=== PATIENT | male | born 1955 | race Caucasian/White ===

== ENCOUNTER → 2023-10-30 | Emergency (ER) | payer MEDICARE, OTHER ==
[~2023-10-30] VITALS: Ht 167.6 cm; Wt 56.8 kg
[~2023-10-30] MED LIST: AMLO-257 PO; LISI-893 PO
[2023-10-30 16:18] LABS: BASOPHILS % (AUTO) 0.3 % (0.0-2.0); EOSINOPHILS % (AUTO) 0.4 % (1.0-6.0); HEMATOCRIT 36.2 % (41-53); HEMOGLOBIN 11.8 g/dL (13.5-17.5); LYMPHOCYTES # (AUTO) 0.8 K/uL (1.0-4.8); LYMPHOCYTES % (AUTO) 8.5 % (22.0-44.0); MEAN CORPUSCULAR HEMOGLOBIN 30.2 pg (26.0-34.0); MEAN CORPUSCULAR HGB CONC 32.7 G/dL (31.0-37.0); MEAN CORPUSCULAR VOLUME 92 fL (80-100); MONOCYTES % (AUTO) 10.8 % (2.0-9.0); NEUTROPHILS # (AUTO) 7.4 K/uL (1.8-7.7); PLATELET COUNT (AUTO) 158 K/uL (150-450); RED BLOOD CELL COUNT(AUTO) 3.92 MIL/uL (4.50-5.90); RED CELL DISTRIBUTION WIDTH 16.3 % (11.5-14.5); WHITE BLOOD COUNT (AUTO) 9.3 K/uL (4.5-11.0)
[2023-10-30 16:32] LABS: ANION GAP 3 mmol/L (8-16); CALCIUM, TOTAL 9.1 mg/dL (8.8-10.5); CARBON DIOXIDE 31 mmol/L (22-29); CHLORIDE 98 mmol/L (98-107); CREATININE 0.77 mg/dL (0.60-1.30); GLOMERULAR FILTR. RATE CALC > 60 mL/min (>60); GLUCOSE,RANDOM 80 mg/dL (70-110); POTASSIUM 4.2 mmol/L (3.5-5.1); SODIUM SERUM 132 mmol/L (136-145); UREA NITROGEN, BLOOD 21 mg/dL (7-18)
[2023-10-30 16:38] LABS: TROPONIN I-HIGH SENSITIVITY 5 ng/L (<76)
[2023-10-30 16:39] VITALS: TEMP 98.9
[2023-10-30 16:43] LABS: B-TYPE NATRIURETIC PEPTIDE 72 pg/mL (0-100)
[2023-10-30 16:57] LABS: ALANINE AMINOTRANSFERASE 95 U/L (12-78); ALBUMIN 2.3 g/dL (3.4-5.0); ALKALINE PHOSPHATASE 130 U/L (46-116); ASPARTATE AMINOTRANSFERASE 77 U/L (15-37); BILIRUBIN,TOTAL 0.5 mg/dL (0.1-1.0); CREATINE KINASE, TOTAL ONLY 152 U/L (39-308); TOTAL PROTEIN, SERUM 7.9 g/dL (6.4-8.2)
[2023-10-30] MEDS: ALBUTEROL SULFATE 2.5 MG/0.5 ML NEB SOLUTION NEB ONE (18:29)
[2023-10-30] MEDS: IPRATROPIUM BROMIDE 0.5 MG/2.5 ML NEB SOLUTION NEB ONE (18:29)
[2023-10-30 19:31] VITALS: BP 105/75; PULSE 77; RESP 14
== END ==
LOC: EMS 15:10
DX: R45.851 Suicidal ideations (principal); I10 Essential (primary) hypertension; Z79.899 Other long term (current) drug therapy
CPT/HCPCS: 71045; 80053; 82550; 83880; 84484; 85025; 93005; 99285; 36415-L1; 36415-TC; J7613

== ENCOUNTER 2023-12-21 18:37 | Inpatient (IN) | payer MEDICARE, MEDICAID ==
[~2023-12-21] VITALS: Ht 175.3 cm; Wt 59.6 kg
[2023-12-21 23:05] LABS: BASOPHILS % (AUTO) 1.1 % (0.0-2.0); EOSINOPHILS % (AUTO) 6.5 % (1.0-6.0); HEMATOCRIT 35.2 % (41-53); HEMOGLOBIN 11.7 g/dL (13.5-17.5); LYMPHOCYTES # (AUTO) 1.1 K/uL (1.0-4.8); LYMPHOCYTES % (AUTO) 23.1 % (22.0-44.0); MEAN CORPUSCULAR HEMOGLOBIN 31.2 pg (26.0-34.0); MEAN CORPUSCULAR HGB CONC 33.4 G/dL (31.0-37.0); MEAN CORPUSCULAR VOLUME 94 fL (80-100); MONOCYTES # (AUTO) 0.6 K/uL (0.1-1.0); MONOCYTES % (AUTO) 11.8 % (2.0-9.0); NEUTROPHILS # (AUTO) 2.8 K/uL (1.8-7.7); NEUTROPHILS % (AUTO) 57.5 % (40.0-70.0); PLATELET COUNT (AUTO) 134 K/uL (150-450); RED BLOOD CELL COUNT(AUTO) 3.76 MIL/uL (4.50-5.90); RED CELL DISTRIBUTION WIDTH 16.1 % (11.5-14.5); WHITE BLOOD COUNT (AUTO) 4.8 K/uL (4.5-11.0)
[2023-12-21 23:14] LABS: ANION GAP 9 mmol/L (8-16); CALCIUM, TOTAL 8.8 mg/dL (8.8-10.5); CARBON DIOXIDE 27 mmol/L (22-29); CHLORIDE 100 mmol/L (98-107); CREATININE 0.74 mg/dL (0.60-1.30); GLOMERULAR FILTR. RATE CALC > 60 mL/min (>60); GLUCOSE,RANDOM 80 mg/dL (70-110); POTASSIUM 4.2 mmol/L (3.5-5.1); SODIUM SERUM 136 mmol/L (136-145); UREA NITROGEN, BLOOD 25 mg/dL (7-18)
[2023-12-21 23:18] LABS: ALCOHOL, BLOOD (SERUM) < 3 mg/dL (0-10)
[2023-12-22] MEDS: HALOPERIDOL LACTATE 5 MG/ML VIAL IM ONE (02:02)
[2023-12-22] MEDS: DiphenhydrAMINE HCL 50 MG/ML VIAL IM ONE (02:03)
[2023-12-22] MEDS: LORazepam 2 MG/ML VIAL IM ONE (02:03)
[2023-12-22 02:36] LABS: COVID AG,FIA SOURCE NASAL SWAB
[2023-12-22 03:08] LABS: SARS-COV2 (COVID) ANTIGEN,FIA Negative (Negative)
[2023-12-22] MEDS ORDERED: HALOPERIDOL 5 MG TABLET PO PRN (12:00)
[2023-12-22] MEDS ORDERED: ZOLPIDEM TARTRATE 10 MG TABLET PO PRN (12:00)
[2023-12-22] MEDS ORDERED: LORazepam 2 MG TABLET PO PRN (12:00)
[2023-12-22 12:48] LABS: PH,URINE DRUG SCREEN 6.5 (5.0-8.0)
[2023-12-22 12:55] LABS: ALCOHOL, URINE DRUG SCREEN NEGATIVE (NEGATIVE); AMPHET/METH SCREEN,URINE NEGATIVE (NEGATIVE); BARBITURATE SCREEN, URINE NEGATIVE (NEGATIVE); BENZODIAZEPINES SCREEN,URINE NEGATIVE (NEGATIVE); CANNABINOID SCREEN,URINE NEGATIVE (NEGATIVE); COCAINE SCREEN,URINE NEGATIVE (NEGATIVE); METHADONE SCREEN, URINE POSITIVE (NEGATIVE); OPIATE SCREEN,URINE NEGATIVE (NEGATIVE); PHENCYCLIDINE SCREEN,URINE NEGATIVE (NEGATIVE)
[2023-12-22 16:07] VITALS: O2SAT 98
[2023-12-23] MEDS ORDERED: ONDANSETRON 4 MG TABLET PO PRN (06:45)
[2023-12-23] MEDS ORDERED: MAGNESIUM HYDROXIDE SUSPENSION 30 ML UDCUP PO PRN (06:45)
[2023-12-23] MEDS ORDERED: GuaiFENesin/D-METHORPHAN [SUGAR-FREE] 200-20MG/10 ML SYRUP UDCUP PO PRN (06:45)
[2023-12-23] MEDS ORDERED: ALBUTEROL SULFATE HFA 90 MCG/PUFF 8 GM INHALER IH PRN (06:45)
[2023-12-23] MEDS ORDERED: IBUPROFEN 400 MG TABLET PO PRN (06:45)
[2023-12-23] MEDS ORDERED: MAG HYDROX/ALUMINUM HYD/SIMETH ES 30 ML SUSPENSION UDCUP PO PRN (06:45)
[2023-12-23] MEDS ORDERED: DOCUSATE SODIUM 100 MG CAPSULE PO PRN (06:45)
[2023-12-23] MEDS ORDERED: PETROLATUM,WHITE 28 GM JELLY TP PRN (06:45)
[2023-12-23] MEDS ORDERED: CloNIDine HCL 0.1 MG TABLET PO PRN (06:45)
[2023-12-23] MEDS ORDERED: LOPERAMIDE HCL 2 MG CAPSULE PO PRN (06:45)
[2023-12-23] MEDS ORDERED: ACETAMINOPHEN 325 MG TABLET PO PRN (06:45)
[2023-12-23] MEDS: LISINOPRIL 10 MG TABLET PO SCH (08:03)
[2023-12-23] MEDS: METHADONE HCL 10 MG TABLET PO SCH (09:23)
[2023-12-23] MEDS: NICOTINE 14 MG/24 HOUR PATCH TD PRN (09:46)
[2023-12-23] MEDS: ESCITALOPRAM OXALATE 10 MG TABLET PO SCH (10:13)
[2023-12-23 10:43] VITALS: BP 114/73; PULSE 62; RESP 16; TEMP 96.8; O2SAT 99
[2023-12-23 20:07] VITALS: BP 140/93; PULSE 67; RESP 16; TEMP 96.9; O2SAT 99
[2023-12-24 08:43] VITALS: BP 116/68; PULSE 64; RESP 16; TEMP 97.9; O2SAT 98
[2023-12-24 09:08] LABS: HEMOGLOBIN A1C 5.3 % (3.8-5.6)
[2023-12-24 09:18] LABS: CHOL/HDL RATIO 2.6 (4.2-7.3)
[2023-12-24 09:43] LABS: THYROID STIMULATING HORMONE 1.92 uIU/mL (0.36-3.74)
[2023-12-24] MEDS: ETHYL ALCOHOL 62% ANTISEPTIC NASAL SANITIZER 0.6 ML AMPUL NASAL SCH (20:13)
[2023-12-24] MEDS ORDERED: ETHYL ALCOHOL 62% ANTISEPTIC NASAL SANITIZER 0.6 ML AMPUL NASAL SCH (21:00)
[2023-12-24] MEDS: CHLORHEXIDINE GLUCONATE 2% TOWELETTE [2'S/6'S] TP SCH (21:22)
[2023-12-24 21:24] VITALS: BP 141/95; PULSE 67; RESP 18; TEMP 97.3; O2SAT 98
[2023-12-24] MEDS ORDERED: CHLORHEXIDINE GLUCONATE 2% TOWELETTE [2'S/6'S] TP SCH (22:00)
[2023-12-25 04:06] LABS: HEPATITIS C AB (EIA) Reactive (Non Reactive)
[2023-12-25 08:22] VITALS: BP 123/73; PULSE 62; RESP 16; TEMP 97.7; O2SAT 97
[2023-12-25 08:42] LABS: APPEARANCE,URINE CLEAR (CLEAR); BILIRUBIN,URINE NEGATIVE (NEGATIVE); COLOR,URINE YELLOW (YELLOW); GLUCOSE, URINE (UA) NEGATIVE (NEGATIVE); KETONES,URINE NEGATIVE (NEGATIVE); LEUKOCYTE ESTERASE ,URINE NEGATIVE (NEGATIVE); NITRATE,URINE NEGATIVE (NEGATIVE); OCCULT BLOOD,URINE NEGATIVE (NEGATIVE); PROTEIN,URINE NEGATIVE (NEGATIVE); SPECIFIC GRAVITIY, URINE 1.023 (1.003-1.030)
[2023-12-25 08:49] LABS: ALCOHOL, URINE DRUG SCREEN NEGATIVE (NEGATIVE); AMPHET/METH SCREEN,URINE NEGATIVE (NEGATIVE); BARBITURATE SCREEN, URINE NEGATIVE (NEGATIVE); BENZODIAZEPINES SCREEN,URINE NEGATIVE (NEGATIVE); CANNABINOID SCREEN,URINE NEGATIVE (NEGATIVE); COCAINE SCREEN,URINE NEGATIVE (NEGATIVE); METHADONE SCREEN, URINE POSITIVE (NEGATIVE); OPIATE SCREEN,URINE NEGATIVE (NEGATIVE); PHENCYCLIDINE SCREEN,URINE NEGATIVE (NEGATIVE)
[2023-12-25 20:00] VITALS: BP 111/79; PULSE 84; RESP 18; TEMP 97.1; O2SAT 95
[2023-12-26 08:26] VITALS: BP 143/79; PULSE 64; RESP 16; TEMP 97.5; O2SAT 98
[2023-12-26] MEDS: MULTIVITAMINS WITH MINERALS, THERAPEUTIC TABLET PO SCH (08:37)
[2023-12-26 20:44] VITALS: BP 98/62; PULSE 60; RESP 18; TEMP 97.6; O2SAT 100
[2023-12-27 08:00] VITALS: BP 120/75; PULSE 70; RESP 18; TEMP 98; O2SAT 99
[2023-12-27 19:06] LABS: HEPATITIS C RT-PCR,QNT 5610000 IU/mL
[2023-12-27 19:23] VITALS: BP 119/79; PULSE 63; RESP 16; TEMP 97; O2SAT 97
[2023-12-27 20:10] VITALS: BP 119/79; PULSE 63; RESP 16; TEMP 97; O2SAT 97
[2023-12-28 08:34] VITALS: BP 116/72; PULSE 74; RESP 18; TEMP 97.5; O2SAT 74
[2023-12-28 21:06] VITALS: BP 101/67; PULSE 61; RESP 18; TEMP 98.6; O2SAT 98
[2023-12-29] MEDS ORDERED: METH5SOL20 PO (13:13)
[2023-12-29] MEDS ORDERED: MULT-660 PO (13:14)
[2023-12-29] MEDS ORDERED: ESCI-8 PO (13:14)
[2023-12-29] MEDS ORDERED: METH10 PO (13:22)
== END 2023-12-29 15:40 | DRG 885 ==
LOC: EMS 18:37 → B2X 12-22 15:18
PROVIDERS: ADMIT Psychiatry & Neurology Child & Adolescent Psychiatry; ATTEND Psychiatry & Neurology Child & Adolescent Psychiatry
PROC: GZ56ZZZ Individual Psychotherapy, Supportive (ICD-10-PCS; principal; 2023-12-23)
DX: F33.3 Major depressive disorder, recurrent, severe with psychotic symptoms (principal); E43 Unspecified severe protein-calorie malnutrition; B18.2 Chronic viral hepatitis C; Z68.1 Body mass index [BMI] 19.9 or less, adult; Z20.822 Contact with and (suspected) exposure to COVID-19; I10 Essential (primary) hypertension; D64.9 Anemia, unspecified; J45.909 Unspecified asthma, uncomplicated; K74.60 Unspecified cirrhosis of liver
CPT/HCPCS: 80048; 80061; 80307; 81003; 82140; 83036; 84443; 85025; 86803; 87081; 87340; 87481; 87522; 99285; G0480; J1200; J1630; J2060

== ENCOUNTER 2024-02-04 14:27 | Inpatient (IN) | payer MEDICARE, MEDICAID ==
[~2024-02-04] VITALS: Ht 177.8 cm; Wt 62.1 kg
[~2024-02-04 14:27] MED LIST changes: +ESCI-8 PO; +METH10 PO; +MULT-660 PO
[2024-02-04 15:48] LABS: BASOPHILS % (AUTO) 0.9 % (0.0-2.0); EOSINOPHILS % (AUTO) 5.9 % (1.0-6.0); HEMATOCRIT 36.6 % (41-53); HEMOGLOBIN 12.3 g/dL (13.5-17.5); LYMPHOCYTES % (AUTO) 20.9 % (22.0-44.0); MEAN CORPUSCULAR HEMOGLOBIN 31.7 pg (26.0-34.0); MEAN CORPUSCULAR HGB CONC 33.4 G/dL (31.0-37.0); MEAN CORPUSCULAR VOLUME 95 fL (80-100); MONOCYTES # (AUTO) 0.7 K/uL (0.1-1.0); NEUTROPHILS # (AUTO) 2.8 K/uL (1.8-7.7); NEUTROPHILS % (AUTO) 58.3 % (40.0-70.0); PLATELET COUNT (AUTO) 122 K/uL (150-450); RED BLOOD CELL COUNT(AUTO) 3.86 MIL/uL (4.50-5.90); RED CELL DISTRIBUTION WIDTH 14.8 % (11.5-14.5); WHITE BLOOD COUNT (AUTO) 4.9 K/uL (4.5-11.0)
[2024-02-04 15:58] LABS: ANION GAP 4 mmol/L (8-16); CALCIUM, TOTAL 9.2 mg/dL (8.8-10.5); CARBON DIOXIDE 29 mmol/L (22-29); CHLORIDE 101 mmol/L (98-107); CREATININE 0.99 mg/dL (0.60-1.30); GLOMERULAR FILTR. RATE CALC > 60 mL/min (>60); GLUCOSE,RANDOM 86 mg/dL (70-110); POTASSIUM 4.4 mmol/L (3.5-5.1); SODIUM SERUM 134 mmol/L (136-145); UREA NITROGEN, BLOOD 23 mg/dL (7-18)
[2024-02-04] MEDS ORDERED: ZOLPIDEM TARTRATE 10 MG TABLET PO PRN (16:00)
[2024-02-04 16:11] LABS: ALCOHOL, BLOOD (SERUM) < 3 mg/dL (0-10)
[2024-02-04 16:35] LABS: COVID AG,FIA SOURCE NASAL SWAB
[2024-02-04 16:56] LABS: SARS-COV2 (COVID) ANTIGEN,FIA Negative (Negative)
[2024-02-05 07:20] VITALS: O2SAT 98
[2024-02-05] MEDS ORDERED: LOPERAMIDE HCL 2 MG CAPSULE PO PRN (09:15)
[2024-02-05] MEDS ORDERED: DOCUSATE SODIUM 100 MG CAPSULE PO PRN (09:15)
[2024-02-05] MEDS ORDERED: MAGNESIUM HYDROXIDE SUSPENSION 30 ML UDCUP PO PRN (09:15)
[2024-02-05] MEDS ORDERED: CloNIDine HCL 0.1 MG TABLET PO PRN (09:15)
[2024-02-05] MEDS ORDERED: GuaiFENesin/D-METHORPHAN [SUGAR-FREE] 200-20MG/10 ML SYRUP UDCUP PO PRN (09:15)
[2024-02-05] MEDS ORDERED: MAG HYDROX/ALUMINUM HYD/SIMETH ES 30 ML SUSPENSION UDCUP PO PRN (09:15)
[2024-02-05] MEDS ORDERED: ACETAMINOPHEN 325 MG TABLET PO PRN (09:15)
[2024-02-05] MEDS ORDERED: PETROLATUM,WHITE 28 GM JELLY TP PRN (09:15)
[2024-02-05] MEDS ORDERED: IBUPROFEN 400 MG TABLET PO PRN (09:15)
[2024-02-05] MEDS ORDERED: ALBUTEROL SULFATE HFA 90 MCG/PUFF 8 GM INHALER IH PRN (09:15)
[2024-02-05] MEDS ORDERED: ONDANSETRON 4 MG TABLET PO PRN (09:15)
[2024-02-05] MEDS: INFLUENZA VIRUS VACCINE TVS (6MO+) 2024-25/PF 45 MCG/0.5 ML SYRINGE IM. ONE (11:45)
[2024-02-05] MEDS: PNEUMOCOCCAL VACCINE POLYVALENT 0.5 ML SYRINGE [PPSV23] IM. ONE (11:45)
[2024-02-05 12:36] VITALS: BP 133/79; PULSE 63; RESP 18; TEMP 97.6; O2SAT 100
[2024-02-05] MEDS ORDERED: LORazepam 2 MG/ML VIAL ONE (16:08)
[2024-02-05] MEDS ORDERED: DiphenhydrAMINE HCL 50 MG/ML VIAL ONE (16:08)
[2024-02-05] MEDS ORDERED: HALOPERIDOL LACTATE 5 MG/ML VIAL ONE (16:08)
[2024-02-05] MEDS: DiphenhydrAMINE HCL 50 MG/ML VIAL IM ONE (16:39)
[2024-02-05] MEDS: LORazepam 2 MG/ML VIAL IM ONE (16:40)
[2024-02-05] MEDS: HALOPERIDOL LACTATE 5 MG/ML VIAL IM ONE (16:40)
[2024-02-05 20:58] VITALS: BP 120/66; PULSE 71; RESP 19; TEMP 98; O2SAT 100
[2024-02-06 09:03] LABS: HEMOGLOBIN A1C 5.2 % (3.8-5.6)
[2024-02-06] MEDS: LORazepam 2 MG TABLET PO PRN (09:09)
[2024-02-06] MEDS: LISINOPRIL 10 MG TABLET PO SCH (09:09)
[2024-02-06] MEDS: HALOPERIDOL 5 MG TABLET PO PRN (09:09)
[2024-02-06 09:13] LABS: CHOL/HDL RATIO 2.9 (4.2-7.3)
[2024-02-06 09:36] VITALS: BP 117/71; PULSE 71; RESP 19; TEMP 97.6; O2SAT 97
[2024-02-06] MEDS: AmLODIPine BESYLATE 5 MG TABLET PO SCH (09:41)
[2024-02-06] MEDS: METHADONE HCL 10 MG TABLET PO SCH (10:24)
[2024-02-06 20:22] VITALS: BP 141/86; PULSE 74; RESP 18; TEMP 96.5; O2SAT 98
[2024-02-06] MEDS: NICOTINE 14 MG/24 HOUR PATCH TD PRN (21:59)
[2024-02-07 08:09] VITALS: BP 127/65; PULSE 64; RESP 16; TEMP 97.9; O2SAT 99
[2024-02-07 20:17] VITALS: BP 110/65; PULSE 61; RESP 18; TEMP 97.6; O2SAT 97
[2024-02-08 08:35] VITALS: BP 109/60; PULSE 71; RESP 15; TEMP 97.8; O2SAT 98
[2024-02-08 09:58] LABS: APPEARANCE,URINE CLEAR (CLEAR); BILIRUBIN,URINE NEGATIVE (NEGATIVE); COLOR,URINE YELLOW (YELLOW); GLUCOSE, URINE (UA) NEGATIVE (NEGATIVE); KETONES,URINE NEGATIVE (NEGATIVE); LEUKOCYTE ESTERASE ,URINE NEGATIVE (NEGATIVE); NITRATE,URINE NEGATIVE (NEGATIVE); OCCULT BLOOD,URINE NEGATIVE (NEGATIVE); PH,URINE 6.5 (5.0-8.0); PH,URINE DRUG SCREEN 6.5 (5.0-8.0); PROTEIN,URINE NEGATIVE (NEGATIVE); SPECIFIC GRAVITIY, URINE 1.019 (1.003-1.030); UROBILINOGEN,URINE <=1.0 mg/dL (<=1.0)
[2024-02-08 10:06] LABS: AMPHET/METH SCREEN,URINE NEGATIVE (NEGATIVE); BARBITURATE SCREEN, URINE NEGATIVE (NEGATIVE); BENZODIAZEPINES SCREEN,URINE NEGATIVE (NEGATIVE); CANNABINOID SCREEN,URINE NEGATIVE (NEGATIVE); COCAINE SCREEN,URINE NEGATIVE (NEGATIVE); METHADONE SCREEN, URINE POSITIVE (NEGATIVE); OPIATE SCREEN,URINE NEGATIVE (NEGATIVE); PHENCYCLIDINE SCREEN,URINE NEGATIVE (NEGATIVE)
[2024-02-08 10:08] LABS: ALCOHOL, URINE DRUG SCREEN NEGATIVE (NEGATIVE)
[2024-02-08 20:21] VITALS: BP 118/73; PULSE 65; RESP 16; TEMP 96.5; O2SAT 96
[2024-02-09] MEDS: LEVOTHYROXINE SODIUM 75 MCG TABLET PO SCH (06:46)
[2024-02-09 08:32] VITALS: BP 140/80; PULSE 97; RESP 18; TEMP 97.9; O2SAT 100
[2024-02-09 20:19] VITALS: BP 137/77; PULSE 66; RESP 18; TEMP 97.4; O2SAT 97
[2024-02-10 08:29] VITALS: BP 139/99; PULSE 74; RESP 19; TEMP 97.9; O2SAT 97
[2024-02-10] MEDS ORDERED: LEVO75 PO (16:03)
[2024-02-10 20:25] VITALS: BP 140/88; PULSE 65; RESP 18; TEMP 97.3; O2SAT 97
== END 2024-02-10 23:41 | DRG 885 ==
LOC: EMS 14:27 → B2X 02-05 08:31
PROVIDERS: ADMIT Psychiatry & Neurology Child & Adolescent Psychiatry; ATTEND Psychiatry & Neurology Child & Adolescent Psychiatry
PROC: GZHZZZZ Group Psychotherapy (ICD-10-PCS; principal; 2024-02-05)
PROC: GZ52ZZZ Individual Psychotherapy, Cognitive (ICD-10-PCS; 2024-02-05)
DX: F29 Unspecified psychosis not due to a substance or known physiological condition (principal); B19.20 Unspecified viral hepatitis C without hepatic coma; F11.20 Opioid dependence, uncomplicated; F33.2 Major depressive disorder, recurrent severe without psychotic features; Z20.822 Contact with and (suspected) exposure to COVID-19; G89.4 Chronic pain syndrome; I10 Essential (primary) hypertension; D64.9 Anemia, unspecified; D69.6 Thrombocytopenia, unspecified; F10.10 Alcohol abuse, uncomplicated; Y90.9 Presence of alcohol in blood, level not specified; J44.9 Chronic obstructive pulmonary disease, unspecified; Z79.899 Other long term (current) drug therapy
CPT/HCPCS: 80048; 80061; 80307; 81003; 83036; 84443; 85025; 87081; 87481; 99285; G0480; J1200; J1630; J2060

== ENCOUNTER 2024-03-14 06:42 | Emergency (ER) | payer MEDICARE, OTHER ==
[~2024-03-14] VITALS: Ht 177.8 cm; Wt 68.2 kg
[~2024-03-14 06:42] MED LIST changes: -ESCI-8 PO; +LEVO75 PO; -MULT-660 PO
[2024-03-14 06:49] VITALS: BP 143/89; PULSE 97; RESP 17; TEMP 98.4; O2SAT 98
[2024-03-14] MEDS ORDERED: METH10 PO (08:04)
[2024-03-14] MEDS: METHADONE HCL 10 MG TABLET PO ONE (08:16)
== END 2024-03-14 08:22 | disposition home or self-care (01) ==
LOC: EMS 06:42
DX: Z76.0 Encounter for issue of repeat prescription (principal); I10 Essential (primary) hypertension; Z79.899 Other long term (current) drug therapy
CPT/HCPCS: 99283